=== PATIENT | male | born 1940 | race Two or more races ===

== ENCOUNTER 2016-08-29 08:58 | Inpatient (IN) | payer MEDICAID ==
[2016-08-29] MEDS: NS 0.9% 1000 ML* 2,000 ML IV ONE ×2 (09:34→11:01)
[2016-08-29 09:37] LABS: Hematocrit 43 % (42-52); Hemoglobin 14.7 g/dl (14.0-18.0); Mean Corpuscular HGB Conc 34 g/dl (31-36); Mean Corpuscular Hemoglobin 33 pg (27-31); Mean Corpuscular Volume 95 fL (80-94); Mean Platelet Volume 8 um3 (7.4-10.4); Red Cell Distribution Width 13 % (10.5-15); White Blood Count 10.1 10^3/ul (3.5-10.8)
[2016-08-29 09:38] LABS: Comments Flag Yes
[2016-08-29 09:39] LABS: Add Diff/Slide Review? Slide Review Added
[2016-08-29 09:49] LABS: Albumin 2.9 g/dL (3.2-5.2); BUN/Creatinine Ratio 27.3 (8-20); C Reactive Protein 105.72 mg/L (< 5.00); Calcium 8.7 mg/dL (8.6-10.3); EGFR African American 126.3 (>60); EGFR Non-African American 98.2 (>60); Globulin 3.7 g/dL (2-4); Magnesium 2.2 mg/dL (1.9-2.7); Potassium 4.2 mmol/L (3.5-5.0); Total Protein 6.6 g/dL (6.4-8.9)
--- NOTE | 2016-08-29 09:49 | RAD ---
INDICATION: Unresponsive. Fever. COMPARISON: Chest x-ray April 25, 2016 TECHNIQUE: An AP portable view obtained at 0935 hours is submitted. FINDINGS: Bones/Soft Tissues: There are no acute bony findings. Cardiomediastinal: The cardiomediastinal silhouette is normal. Lungs: There are no infiltrates. Pleura: There are no pleural effusions. Other: None IMPRESSION: NO ACTIVE DISEASE.
[2016-08-29 09:51] LABS: Troponin I 0.01 ng/mL (<0.04)
[2016-08-29 10:14] LABS: TSH (Thyroid Stimulating Horm) 11.17 mcIU/mL (0.34-5.60)
[2016-08-29 10:32] LABS: Urine Bilirubin Negative (Negative); Urine Glucose Negative (Negative); Urine Nitrite Negative (Negative)
[2016-08-29] MEDS ORDERED: Acetaminophen SUPP* 650 MG SUPP PR PRN (12:26)
[2016-08-29] MEDS ORDERED: PROCHLORPERAZINE INJ 5 MG/ML 2 ML VIAL IV PRN (12:28)
[2016-08-29] MEDS ORDERED: Divalproex Sprinkle CAP* 125 MG PO SCH (13:00)
--- NOTE | 2016-08-29 13:51 | ED ---
Robert Garcia Billy, scribed for Hossein Lantigua MD on 08/29/16 at 1006 . HPI Febrile Illness - HPI Summary HPI Summary: Patient is a 75 year-old male coming to [facility] for evaluation of 5 days of fever (TMax 102F) that has been unimproved with Tylenol and amoxicillin. Patient has a history of severe dementia, and the history is obtained from his family through a diesel retrofit installer service. Family reports that the patient also has had decreased PO intake and urinary production, and has had dark, reddish urine. - History of Current Complaint Chief Complaint: EDFever Time Seen by Provider: 08/29/16 09:15 Hx Obtained From: Family/Hris Administrator, Spot Welder Line Hx From Patient Unobtainable Due To: Dementia Onset/Duration: Started Days Ago, Still Present Timing: Constant Temperature: 102 F Initial Severity: Moderate Current Severity: Moderate Aggravating Factors: Nothing Alleviating Factors: Nothing Associated Signs and Symptoms: Other: - decreased PO intake, dark urine - Additional Pertinent History Primary Care Physician: [id number] - Allergy/Home Medications Allergies/Adverse Reactions: Allergies Allergy/AdvReac Type Severity Reaction Status Date / Time No Known Allergies Allergy Verified 01/09/16 10:57 Home Medications: Home Medications Control Gel Formula Dressing [Duoderm Signal Dressing] 1 patch TOPICAL DAILY 09/11 [History Confirmed 08/29/16] Divalproex Sprinkle CAP* [Depakote Sprinkle CAP*] 125 mg PO QID 08/29/16 [ History Confirmed 08/29/16] Magnesium Hydroxide LIQ* [Milk of Magnesia LIQ*] 30 ml PO DAILY PRN 08/29/16 [ History Confirmed 08/29/16] PMH/Surg Hx/FS Hx/Imm Hx Respiratory History: Reports: Hx Pneumonia - History of aspiration pneumonia Denies: Other Respiratory Problems/Disorders History: Reports: Hx Benign Prostatic Hyperplasia, Other Problems/ Disorders - prostatitis or enlarged prostate Sensory History: Reports: Hx Cataracts, Hx Contacts or Glasses Opthamlomology History: Reports: Hx Cataracts, Hx Contacts or Glasses Neurological History: Reports: Hx Dementia, Hx Seizures Psychiatric History: Denies: Hx Anxiety - Surgical History Hx Anesthesia Reactions: No Infectious Disease History: No Infectious Disease History: Denies: Traveled Outside the [place] in Last 30 Days - Family History Family History: No family history of malignant hyperthermia or anesthesia reaction. - Social History Alcohol Use: None Hx Substance Use: No Substance Use Type: Reports: None Hx Tobacco Use: No Smoking Status (MU): Never Smoked Tobacco Review of Systems Positive: Fever Positive: Other - decreased PO Positive: see HPI All Other Systems Reviewed And Are Negative: Yes Physical Exam Triage Information Reviewed: Yes Vital Signs On Initial Exam: Initial Vitals Temp Pulse Resp BP Pulse Ox 99.4 F 87 15 109/71 95 08/29/16 09:30 08/29/16 09:30 08/29/16 09:30 08/29/16 09:30 08/29/16 09:30 Vital Signs Reviewed: Yes Completion Of Physical Exam Limited Due To: Dementia Appearance: Positive: No Pain Distress Skin: Positive: Warm, Skin Color Reflects Adequate Perfusion, Dry Head/Face: Positive: Normal Head/Face Inspection Eyes: Positive: EOMI, TIESHA ENT: Positive: Normal ENT inspection Neck: Positive: Supple, Nontender Respiratory/Lung Sounds: Positive: Clear to Auscultation, Breath Sounds Present Cardiovascular: Positive: RRR Abdomen Description: Positive: Nontender, Soft Musculoskeletal: Negative: Edema Left, Edema Right Neurological: Positive: Other - Patient is non-verbal at baseline. Psychiatric: Positive: Other - Unable to assess, patient is nonverbal at baseline. Diagnostics - Vital Signs Vital Signs Temp Pulse Resp BP Pulse Ox 08/29/16 09:30 99.4 F 87 15 109/71 95 - Laboratory Lab Results: Lab Results 08/29/16 08/29/16 08/29/16 Range/Units 09:20 09:20 09:20 WBC 10.1 (3.5-10.8) 10^3/ul RBC 4.50 (4.0-5.4) 10^6/ul Hgb 14.7 (14.0-18.0) g/dl Hct 43 (42-52) % MCV 95 H (80-94) fL MCH 33 H (27-31) pg MCHC 34 (31-36) g/dl RDW 13 (10.5-15) % Plt Count 168 (150-450) 10^3/ul MPV 8 (7.4-10.4) um3 Neut % (Auto) 67.6 (38-83) % Lymph % (Auto) 15.9 L (25-47) % [place] % (Auto) 15.8 H (1-9) % Eos % (Auto) 0.2 (0-6) % Baso % (Auto) 0.5 (0-2) % Absolute Neuts (auto) 6.8 (1.5-7.7) 10^3/ul Absolute Lymphs (auto) 1.6 (1.0-4.8) 10^3/ul Absolute Monos (auto) 1.6 H (0-0.8) 10^3/ul Absolute Eos (auto) 0 (0-0.6) 10^3/ul Absolute Basos (auto) 0.1 (0-0.2) 10^3/ul Absolute Nucleated RBC 0 10^3/ul Nucleated RBC % 0 INR (Anticoag Therapy) 0.96 (0.89-1.11) APTT 32.1 (26.0-36.3) seconds Sodium (133-145) mmol/L Potassium (3.5-5.0) mmol/L Chloride (101-111) mmol/L Carbon Dioxide (22-32) mmol/L Anion Gap (2-11) mmol/L BUN (6-24) mg/dL Creatinine (0.67-1.17) mg/dL Est GFR ( Amer) (>60) Est GFR (Non-Af Amer) (>60) BUN/Creatinine Ratio (8-20) Glucose (70-100) mg/dL Lactic Acid (0.5-2.0) mmol/L Calcium (8.6-10.3) mg/dL Magnesium (1.9-2.7) mg/dL Total Bilirubin (0.2-1.0) mg/dL AST (13-39) U/L ALT (7-52) U/L Alkaline Phosphatase (34-104) U/L Total Creatine Kinase (10-223) U/L CK-MB (CK-2) (0.6-6.3) ng/mL Troponin I (<0.04) ng/mL C-Reactive Protein (< 5.00) mg/L B-Natriuretic Peptide 43 ( - 100) pg/mL Total Protein (6.4-8.9) g/dL Albumin (3.2-5.2) g/dL Globulin (2-4) g/dL Albumin/Globulin Ratio (1-3) Lipase (11.0-82.0) U/L TSH 08/29/16 08/29/16 Range/Units 09:20 09:20 WBC (3.5-10.8) 10^3/ul RBC (4.0-5.4) 10^6/ul Hgb (14.0-18.0) g/dl Hct (42-52) % MCV (80-94) fL MCH (27-31) pg MCHC (31-36) g/dl RDW (10.5-15) % Plt Count (150-450) 10^3/ul MPV (7.4-10.4) um3 Neut % (Auto) (38-83) % Lymph % (Auto) (25-47) % [place] % (Auto) (1-9) % Eos % (Auto) (0-6) % Baso % (Auto) (0-2) % Absolute Neuts (auto) (1.5-7.7) 10^3/ul Absolute Lymphs (auto) (1.0-4.8) 10^3/ul Absolute Monos (auto) (0-0.8) 10^3/ul Absolute Eos (auto) (0-0.6) 10^3/ul Absolute Basos (auto) (0-0.2) 10^3/ul Absolute Nucleated RBC 10^3/ul Nucleated RBC % INR (Anticoag Therapy) (0.89-1.11) APTT (26.0-36.3) seconds Sodium 130 L (133-145) mmol/L Potassium 4.2 (3.5-5.0) mmol/L Chloride 99 L (101-111) mmol/L Carbon Dioxide 22 (22-32) mmol/L Anion Gap 9 (2-11) mmol/L BUN 21 (6-24) mg/dL Creatinine 0.77 (0.67-1.17) mg/dL Est GFR ( Amer) 126.3 (>60) Est GFR (Non-Af Amer) 98.2 (>60) BUN/Creatinine Ratio 27.3 H (8-20) Glucose 160 H (70-100) mg/dL Lactic Acid 2.8 H* (0.5-2.0) mmol/L Calcium 8.7 (8.6-10.3) mg/dL Magnesium 2.2 (1.9-2.7) mg/dL Total Bilirubin 1.00 (0.2-1.0) mg/dL AST 26 (13-39) U/L ALT 13 (7-52) U/L Alkaline Phosphatase 49 (34-104) U/L Total Creatine Kinase 579 H (10-223) U/L CK-MB (CK-2) 3.6 (0.6-6.3) ng/mL Troponin I 0.01 (<0.04) ng/mL C-Reactive Protein 105.72 H (< 5.00) mg/L B-Natriuretic Peptide ( - 100) pg/mL Total Protein 6.6 (6.4-8.9) g/dL Albumin 2.9 L (3.2-5.2) g/dL Globulin 3.7 (2-4) g/dL Albumin/Globulin Ratio 0.8 L (1-3) Lipase 15 (11.0-82.0) U/L TSH Pending Result Diagrams: 08/29/16 09:20 08/29/16 09:20 Lab Statement: Any lab studies that have been ordered have been reviewed, and results considered in the medical decision making process. Course/Dx - Course Course Of Treatment: NO CRITICAL CARE TIME Assessment/Plan: ADMIT HOSPITALIST STABLE - Diagnoses Provider Diagnoses: Febrile illness, Weakness - Provider Notifications Discussed Care Of Patient With: Dr. Cote (hospitalist) @ 1058: accepts admission. Discharge - Discharge Plan Condition: Stable Disposition: ADMITTED TO [facility] documentation as recorded by the Robert dubose Billy accurately reflects the service I personally performed and the decisions made by me, Hossein Lantigua MD.
[2016-08-29] MEDS: NS 0.9% 1000 ML* 1,000 ML IV SCH ×2 (14:10→19:33)
[2016-08-29] MEDS: Clindamycin 600 MG IVPREMIX(* 600 MG/50 ML SDV IV SCH ×2 (14:10→20:06)
[2016-08-29] MEDS: Pantoprazole IV* 40 MG IV SCH (14:17)
[2016-08-29] MEDS: Heparin VIAL(*) 5000 UNITS/ML VIAL (FIVE THOUSAND) SUBCUT SCH ×2 (14:17→21:42)
[2016-08-29] MEDS: Valproic Acid IV(*) 100 MG/ML 5 ML VIAL (500 MG) IVPB SCH ×2 (15:44→15:45)
[2016-08-29] MEDS: NS 0.9% IVPB SCH ×3 (15:45→21:42)
[2016-08-29] MEDS: VALPROIC ACID IVPB SCH ×3 (15:45→21:42)
[2016-08-29] MEDS ORDERED: NS 0.9% 500 ML BAG* 500 ML IV ONE (18:19)
--- NOTE | 2016-08-29 20:41 | HP ---
Amended report to correct past surgical history. HISTORY AND PHYSICAL: DATE OF ADMISSION: 08/29/16 TIME OF EVALUATION: Noon. PRIMARY CARE PROVIDER: Dr. Angelica Barr. CHIEF COMPLAINT: "He has a fever." HISTORY OF PRESENT ILLNESS: The patient is accompanied by his and friend that only speak Czech. They refused to use the blue tool procurement coordinator phone and preferred to use her own tool procurement coordinator on her cell phone. Please note that information is limited due to that. Mr. Aparicio is a 75-year-old male with a past medical history of advanced Alzheimer 's dementia, seizure disorder, BPH, history of GI bleeding, cholelithiasis, multiple admissions for aspiration pneumonia, who was brought in by his family due to fever for 5 days. The patient was admitted to [facility] from 04/25/16 to 04/27/16. At that time, the impression was that the patient has had an episode of seizure and this was followed by possible aspiration and fever. He was treated with Augmentin at that time. He was seen by Palliative Care at that time (Dr. Bailee Edwards) and she felt that he would qualify for hospice services on the basis of his profound dementia and recurrent aspiration, but the family was not interested at that time. On that occasion, his MOLST form was confirmed and the patient was do not resuscitate. It is a bit difficult to get the timing from his , but it appears he may have had one episode of choking while drinking water. Over the last 5 days, he started to have a fever up to 102 at home and she gave him amoxicillin. She states that he has not seen a physician and this amoxicillin is something that she brought from [place]. He continued to have fever, was more lethargic, and he was not drinking or eating, and for that reason, they decided to bring him to the emergency room today. As far as she can tell me, he was not complaining of pain. PAST MEDICAL HISTORY: 1. Advanced Alzheimer's dementia. 2. Seizure disorder. 3. BPH. 4. History of GI bleed. 5. History of cholelithiasis. MEDICATION LIST: 1. Depakote Sprinkle 125 mg p.o. four times a day. 2. Doxazosin 2 mg p.o. at bedtime. 3. Milk of magnesia 30 mL p.o. daily as needed for constipation. 4. Omeprazole 20 mg p.o. daily. ALLERGIES: No known drug allergies. FAMILY HISTORY: Unable to obtain from the patient. SOCIAL HISTORY: As per records, there is no report of alcohol, tobacco, or drug use. He lives at home with his and daughter who provide much of his care. Surrogate decision maker is his son, Yi Aparicio, phone number is . REVIEW OF SYSTEMS: I am unable to obtain from the patient. PHYSICAL EXAMINATION GENERAL: The patient is an elderly male, lying in the ER stretcher, in no acute distress. VITAL SIGNS: Temperature 99.4, heart rate is 85, respiratory rate is 17, oxygen saturation is 97% on room air, blood pressure is 130/76. HEENT: Pupils are equal. Dry mucous membranes. CHEST: Breath sounds present bilaterally, coarse but no added sounds. CVS: Normal S1 and S2. Regular rate and rhythm. ABDOMEN: Soft, nontender, and nondistended. Bowel sounds are present. EXTREMITIES: No edema. NEURO: He is alert, but nonverbal at this time. He does not follow commands. He does withdraw all 4 extremities from pain. DIAGNOSTIC STUDIES/LAB DATA: The patient had a CBC that showed a WBC of 10.1, hemoglobin of 14.7, hematocrit of 43, MCV of 95, MCH of 33, platelets of 168 with 67% neutrophils. INR is 0.96. Chemistries showed sodium of 130, potassium of 4.2, chloride of 99, bicarb of 22, BUN of 21, creatinine of 0.7, glucose of 160, lactic acid of 2.8. LFTs are normal. CPK is 579. CRP is 105. TSH is 11.17. Urinalysis was negative. Rapid influenza A and B were negative. Chest x-ray showed no active disease. ASSESSMENT AND PLAN: Mr. Aparicio is a 75-year-old male with past medical history of advanced Alzheimer's dementia, seizure disorder, benign prostatic hyperplasia , gastrointestinal bleed, cholelithiasis, recurrent episodes of aspiration pneumonia, who presented to the emergency room with fever and failure to thrive. 1. Fever/failure to thrive. I suspect that the patient probably has another episode of aspiration pneumonia. Chest x-ray showed no infiltrate for now, but the patient is dehydrated, so I believe something may blossom with IV hydration. Urinalysis and influenza tests are negative at this time and the describes one episode of choking with liquids. He will be admitted as observation to the medical floor and he will be started on clindamycin. Cultures are already sent in the emergency room. 2. Dehydration. The patient will receive IV fluids. 3. Possible dysphagia/recurrent aspiration. I am going to keep the patient n.p.o. except medications for now and I am going to request Speech Therapy evaluation. 4. Advanced dementia. I believe the patient qualifies for hospice and I am going to request another Palliative Care consultation to discuss this possibility with his family. 5. DVT prophylaxis. The patient has a score of 3 on the DVT Prophylaxis Risk Assessment guide and he will be started on subcutaneous heparin. 6. Code status. According to his MOLST form filled on his last admission, he is a do not resuscitate. According to the 's wishes, I called his son to confirm those directives, but the son did not sweet pickled fruit maker the phone, so I left a message and I am awaiting his call back. This MOLST form should be valid for at least 24 hours until we can get in touch with his healthcare proxy. TIME SPENT: Approximately 55 minutes was spent with the family interview, the patient's physical examination, medical records review to complete the admission , more than half of this time was spent [id number] with the patient in coordination of care. CC: Dr. Angelica Barr* [id number]/CPS #: [id number] NICK
[2016-08-29] MEDS ORDERED: Doxazosin TAB* 2 MG PO SCH (21:00)
[2016-08-30] MEDS: Clindamycin 600 MG IVPREMIX(* 600 MG/50 ML SDV IV SCH ×4 (01:00→18:23)
[2016-08-30 05:59] LABS: Comments Flag Yes; Hematocrit 44 % (42-52); Hemoglobin 14.1 g/dl (14.0-18.0); Mean Corpuscular HGB Conc 32 g/dl (31-36); Mean Corpuscular Hemoglobin 32 pg (27-31); Mean Corpuscular Volume 100 fL (80-94); Mean Platelet Volume 9 um3 (7.4-10.4); Red Blood Count 4.39 10^6/ul (4.0-5.4); Red Cell Distribution Width 14 % (10.5-15); White Blood Count 7.3 10^3/ul (3.5-10.8)
[2016-08-30 06:00] LABS: Add Diff/Slide Review? Slide Review Added
[2016-08-30] MEDS: Heparin VIAL(*) 5000 UNITS/ML VIAL (FIVE THOUSAND) SUBCUT SCH ×3 (06:05→22:06)
[2016-08-30] MEDS: NS 0.9% 1000 ML* 1,000 ML IV SCH ×2 (06:05→17:26)
[2016-08-30 06:21] LABS: BUN/Creatinine Ratio 27.4 (8-20); Calcium 8.2 mg/dL (8.6-10.3); EGFR African American 162.2 (>60); EGFR Non-African American 126.1 (>60)
[2016-08-30 06:47] LABS: Free T4 0.97 ng/dL (0.61-1.12)
[2016-08-30 07:02] LABS: Total T3 1.24 ng/mL (0.87-1.78)
[2016-08-30] MEDS: Pantoprazole IV* 40 MG IV SCH (09:57)
[2016-08-30] MEDS: NS 0.9% IVPB SCH ×4 (09:57→22:06)
[2016-08-30] MEDS: VALPROIC ACID IVPB SCH ×4 (09:57→22:06)
--- NOTE | 2016-08-30 14:40 | PN ---
Subjective Date of Service: 08/30/16 Interval History: HOSPITALIST PROGRESS NOTE Patient seen and examined at bedside. Non-verbal. Family member at bedside offers no complaints, but did not want to use blue phone. Family History: Unchanged from Admission Social History: Unchanged from Admission Past Medical History: Unchanged from Admission Objective Active Medications: Acetaminophen (Tylenol Supp*) 650 mg ND Q4H PRN PRN Reason: Pain/fever Heparin Sodium (Porcine) (Heparin Vial(*)) 5,000 units SUBCUT Q8HR [facility] Last Admin: 08/30/16 14:27 Dose: 5,000 units Sodium Chloride (Ns 0.9% 1000 Ml*) 1,000 mls @ 100 mls/hr IV PER RATE [facility] Last Admin: 08/30/16 06:05 Dose: 100 mls/hr Clindamycin HCl/Dextrose (Cleocin 600 Mg Ivpremix(*) Sdv) 600 mg in 50 mls @ 100 mls/hr IV Q6H [facility] Last Admin: 08/30/16 12:39 Dose: 100 mls/hr Valproic Acid 125 mg/ Sodium (Chloride) 51.25 mls @ 102.5 mls/hr IVPB QID [facility] Last Admin: 08/30/16 14:26 Dose: 102.5 mls/hr Pantoprazole Sodium (Protonix Iv*) 40 mg IV DAILY [facility] Last Admin: 08/30/16 09:57 Dose: 40 mg Prochlorperazine Edisylate (Compazine Inj*) 5 mg IV Q6H PRN PRN Reason: NAUSEA/VOMITING Selected Entries 08/30/16 07:21 Temperature 98.2 F Pulse Rate 74 Respiratory 16 Rate Blood Pressure 142/79 (mmHg) O2 Sat by Pulse 100 Oximetry Oxygen Devices in Use Now: Nasal Cannula Appearance: Elderly male lying in bed in NAD. Eyes: No Scleral Icterus Ears/Nose/Mouth/Throat: Mucous Membranes Moist Neck: Trachea Midline Respiratory: Symmetrical Chest Expansion and Respiratory Effort, Clear to Auscultation Cardiovascular: RRR - Normal S1 and S2 Abdominal: NL Sounds; No Tenderness; No Distention Extremities: No Edema Neurological: - - Lethargic, did not open eyes, doesn't follow commands Lines/Tubes/Other Access: Clean, Dry and Intact Peripheral IV Result Diagrams: 08/30/16 05:26 08/30/16 05:26 Assess/Plan/Problems-Billing Assessment: Mr. Aparicio is a 75yo M with advanced dementia, seizure disorder, BPH, who presented to ED with fever and poor oral intake, found to have another episode of aspiration pneumonia. - Patient Problems (1) Aspiration pneumonia Comment: - Suspect his fever and failure to thrive are associated with another episode of aspiration pneumonia. - Continue Clindamycin. (2) Dehydration Comment: - Continue IVF. (3) Dysphagia Comment: - Seen by Speech pathology - recommended pureed diet with nectar thick liquids (by spoon). (4) Dementia Comment: - Continue supportive care. - Palliative care consult requested. (5) DVT prophylaxis Comment: - SQ heparin. (6) DNR (do not resuscitate) Status and Disposition: Inpatient.
--- NOTE | 2016-08-30 20:48 | CONS ---
PALLIATIVE CARE CONSULTATION: DATE OF CONSULT: 08/30/16 PRIMARY CARE PHYSICIAN: Angelica Barr MD. REQUESTING PHYSICIAN FOR CONSULTATION: Aneta Pascal MD. REASON FOR CONSULT: Evaluation for hospice. HOSPITAL COURSE: This is a 75-year-old male with a past medical history of advanced Alzheimer's dementia with a history of recurrent aspiration pneumonia and seizure disorder who presented to the emergency room on the with a fever. The patient himself has advanced dementia. He is nonverbal and unable to follow commands. His and several family members are only able to speak Mandarin. The son, Yi Aparicio, is able to translate and is the primary proxy. The patient was admitted to the hospitalist service for presumed fever, failure to thrive, and possibly aspiration pneumonia and was started on IV fluids and antibiotics. There was discussion about his deterioration and getting palliative care involved. Palliative care evaluated the patient back in March 2016 and at that time he was eligible for hospice and the family declined, but son feels now that they feel that he and his mother will be ready for him to enroll in hospice. He has remained nonverbal. He does not have any meaningful interaction. He keeps his eyes closed for the majority of the day. For the past week, he has been unable to get into the wheelchair. The family members are the primary caregivers and care for him at home, but they stated things are getting harder and harder for him as he is beginning to deteriorate. The son Yi thinks that the will be agreeable to hospice and we discussed managing his symptoms at home and keeping at home as comfortable as possible would be the goal. He did pass a swallow evaluation here for nectar thickened pureed diet, but the staff is reluctant to feed him due to his decreased level of alertness as he does keep his eyes closed. The family is more comfortable with feeding him. They state that he will eventually open his eyes as he begins to be fed, which I discussed as another reason to keep him home as I know him they are more comfortable with feeding him and his behavior, and the son is agreeable to this. Unable to obtain review of systems due to the patient's advanced dementia. PAST MEDICAL HISTORY: 1. Advanced Alzheimer's dementia. 2. History of recurrent aspiration pneumonia. 3. Seizure disorder. 4. History of BPH. 5. History of GI bleed. 6. History of cholelithiasis. 7. History of 5 admissions in 2016 secondary to aspiration pneumonia and GI bleed. INPATIENT MEDICATIONS: 1. Tylenol 650 mg every 4 hours as needed. 3. Clindamycin 600 mg every 6 hours. 4. Heparin 5000 units subcu q.8 hours. 5. IV fluids 100 cc an hour. 6. Pantoprazole 40 mg IV daily. 7. Prochlorperazine 5 mg IV q.6 hours as needed. 8. Valproic acid 125 mg 4 times a day. ALLERGIES: No known drug allergies. FAMILY HISTORY: Unable to obtain. SOCIAL HISTORY: As mentioned, the patient lives at home. He is being cared for by his , daughter, and son. As mentioned, he is nonverbal, nonambulatory, completely dependent on his ADLs. His son, Yi Aparicio, is the primary healthcare proxy, his phone number is [phone]. MOLST form currently is a DNR and DNI. No feeding tube, determined antibiotics and to sent to the hospital if necessary. REVIEW OF SYSTEMS: Unable to obtain. PHYSICAL EXAM: Vitals: Temp 98.2, pulse rate 74, respiratory rate 16, oxygen saturation 100% on 2 L, blood pressure 142/79. General: No acute distress. Resting comfortably with his eyes closed. Unable to awake the patient with tactile or verbal stimuli. HEENT: Neck supple. No lymphadenopathy. Pupils are pinpoint, difficult to open them. The patient is resisting my opening his eyes. Oropharynx: Mucous membranes moist. Head: Normocephalic. Cardiac: Soft systolic murmur heard. Regular rate and rhythm. Respiratory: Diminished breath sounds. No wheezing, rhonchi, or rales. Abdomen: Soft, nontender, nondistended. Extremities: No clubbing, cyanosis, or edema. +1 DPs. Neurologic: The patient is nonverbal, unable to follow any commands. Did not witness any spontaneous movement. DIAGNOSTIC STUDIES/LAB DATA: White count 7.3, hemoglobin 14.1, hematocrit 44, platelets 105. Sodium 133, potassium 4, chloride 106, bicarb 20, BUN 17, creatinine 0.62. Albumin is 2.9. Chest x-ray showed no active cardiopulmonary disease. ASSESSMENT AND PLAN: This is a 75-year-old male with a past medical history of advanced Alzheimer's dementia and recurrent aspiration pneumonia, who presented to the emergency room on the with a fever, potentially with aspiration pneumonia/pneumonitis. I spoke with the son at length and he admits that his clinical status has continued to decline. He is becoming more weak, unable to sit in a wheelchair for very long. He and his family were not ready for hospice back in March when palliative care was consulted at this time. At this time, he is much more accepting of hospice with the additional resources and keeping him comfortable at home and we discussed to not return to the hospital unless pain or severe symptoms could not be otherwise controlled and he is agreeable to this. Recommendation is to go home with hospice tomorrow and to enroll with hospice as well. I modified the MOLST form to include the DNR/ DNI comfort measures. No feeding tube and do not sent to the hospital, determine use of antibiotics and the son is going to sign this when he comes into the hospital. He is going to talk to his mother to make sure that she is agreeable to these recommendations. If she is not, he will contact the hospital and notify us, but he feels that she will be agreeable to the recommendations. Thank you for this consultation, I will follow along with you. TIME SPENT: Greater than 90 minutes was spent during this consultation, more than half the time was spent in direct patient contact. CC: Angelica Barr MD* [id number]/[facility] #: [id number] NICK
[2016-08-31] MEDS: Clindamycin 600 MG IVPREMIX(* 600 MG/50 ML SDV IV SCH ×2 (01:01→06:03)
[2016-08-31] MEDS: NS 0.9% 1000 ML* 1,000 ML IV SCH (05:31)
[2016-08-31] MEDS: Heparin VIAL(*) 5000 UNITS/ML VIAL (FIVE THOUSAND) SUBCUT SCH ×3 (06:03→22:41)
[2016-08-31 06:42] LABS: BUN/Creatinine Ratio 17.9 (8-20); Calcium 7.9 mg/dL (8.6-10.3); EGFR African American 148.3 (>60); EGFR Non-African American 115.3 (>60); Potassium 3.9 mmol/L (3.5-5.0)
[2016-08-31 07:15] LABS: Hematocrit 36 % (42-52); Hemoglobin 12.2 g/dl (14.0-18.0); Mean Corpuscular HGB Conc 34 g/dl (31-36); Mean Corpuscular Hemoglobin 33 pg (27-31); Mean Corpuscular Volume 96 fL (80-94); Mean Platelet Volume 7 um3 (7.4-10.4); Red Blood Count 3.75 10^6/ul (4.0-5.4); Red Cell Distribution Width 13 % (10.5-15); White Blood Count 9.4 10^3/ul (3.5-10.8)
[2016-08-31 07:21] LABS: Add Diff/Slide Review? Slide Review Added; Comments Flag Yes
[2016-08-31] MEDS: Pantoprazole IV* 40 MG IV SCH (08:34)
[2016-08-31] MEDS: Divalproex Sprinkle CAP* 125 MG PO SCH ×5 (08:39→21:16)
--- NOTE | 2016-08-31 12:14 | PN ---
Subjective Date of Service: 08/31/16 Interval History: HOSPITALIST PROGRESS NOTE Patient seen and examined at bedside. Non-verbal. As per RN, patient had better PO intake with family last night. Family History: Unchanged from Admission Social History: Unchanged from Admission Past Medical History: Unchanged from Admission Objective Active Medications: Acetaminophen (Tylenol Supp*) 650 mg TX Q4H PRN PRN Reason: Pain/fever Last Admin: 08/30/16 22:06 Dose: 650 mg Clindamycin HCl (Cleocin Cap*) 300 mg PO Q6HR EMRE Divalproex Sodium (Depakote Sprinkle Cap*) 125 mg PO QID [facility] Last Admin: 08/31/16 08:39 Dose: 125 mg Doxazosin Mesylate (Cardura Tab*) 2 mg PO BEDTIME [facility] Heparin Sodium (Porcine) (Heparin Vial(*)) 5,000 units SUBCUT Q8HR [facility] Last Admin: 08/31/16 06:03 Dose: 5,000 units Pantoprazole Sodium (Protonix Iv*) 40 mg IV DAILY [facility] Last Admin: 08/31/16 08:34 Dose: 40 mg Prochlorperazine Edisylate (Compazine Inj*) 5 mg IV Q6H PRN PRN Reason: NAUSEA/VOMITING Vital Signs 08/30/16 08/30/16 08/31/16 22:06 23:41 04:16 Temperature 99.9 F 99.1 F 98.5 F Pulse Rate 75 66 Respiratory 16 17 Rate Blood Pressure 142/74 123/61 (mmHg) O2 Sat by Pulse 99 99 Oximetry 08/31/16 08/31/16 07:13 08:00 Temperature 98.0 F Pulse Rate 69 Respiratory 16 Rate Blood Pressure 140/76 (mmHg) O2 Sat by Pulse 100 Oximetry Oxygen Devices in Use Now: Nasal Cannula Appearance: Elderly male lying in bed in NAD. Eyes: No Scleral Icterus Ears/Nose/Mouth/Throat: Mucous Membranes Moist Neck: Trachea Midline Respiratory: Symmetrical Chest Expansion and Respiratory Effort, Clear to Auscultation Cardiovascular: RRR - Normal S1 and S2 Abdominal: NL Sounds; No Tenderness; No Distention Extremities: No Edema Neurological: - - Eyes closed, squeezes family member hand, but does not follow commands. Lines/Tubes/Other Access: Clean, Dry and Intact Peripheral IV Nutrition: Taking PO's Result Diagrams: 08/31/16 07:00 04/06/17 05:38 Assess/Plan/Problems-Billing Assessment: Mr. Aparicio is a 75yo M with advanced dementia, seizure disorder, BPH, who presented to ED with fever and poor oral intake, found to have another episode of aspiration pneumonia. - Patient Problems (1) Aspiration pneumonia Comment: - Suspect his fever and failure to thrive are associated with another episode of aspiration pneumonia. - Will change Clindamycin to PO and see if he can tolerate it. (2) Dehydration Comment: - Resolved. - D/c IVF and encourage PO fluid intake. (3) Dysphagia Comment: - Seen by Speech pathology - recommended pureed diet with nectar thick liquids (by spoon). (4) Dementia Comment: - Continue supportive care. - Palliative care consult appreciated. (5) Seizure disorder Comment: - Change IV Depakote back to PO and monitor. (6) Subclinical hypothyroidism Comment: - TSH has been elevated, but Free T4 and T3 are normal. (7) End of life care Comment: - Lengthy conversation with patient's son at bedside. He is accepting the idea to discharge home with Hospice, but struggling with what to do if his father has another episode of pneumonia. - Plan at this time is to see if he can tolerate PO meds, plan for discharge home with Hospice tomorrow and son will further discuss with family what to do in case patient comes down with another infection. (8) DVT prophylaxis Comment: - SQ heparin. (9) DNR (do not resuscitate) Status and Disposition: Inpatient.
[2016-08-31] MEDS: Clindamycin CAP* 150 MG PO SCH ×3 (12:30→23:52)
[2016-08-31] MEDS ORDERED: Acetaminophen TAB* 325 MG PO PRN (12:32)
[2016-08-31] MEDS ORDERED: Doxazosin TAB* 2 MG PO SCH (21:00)
[2016-09-01] MEDS: Clindamycin CAP* 150 MG PO SCH (05:19)
[2016-09-01] MEDS: Heparin VIAL(*) 5000 UNITS/ML VIAL (FIVE THOUSAND) SUBCUT SCH (05:20)
[2016-09-01] MEDS ORDERED: Omeprazole CAP* 20 MG PO SCH (06:30)
[2016-09-01 07:34] VITALS: BP 132/74
[2016-09-01] MEDS: Divalproex Sprinkle CAP* 125 MG PO SCH (07:54)
--- NOTE | 2016-09-02 00:32 | DS ---
CC: Dr. Angelica Barr; Dr. Adri Rossi DISCHARGE SUMMARY: DATE OF ADMISSION: 08/29/16 DATE OF DISCHARGE: 09/01/16 DISCHARGE DIAGNOSES: 1. Aspiration pneumonia. 2. Dehydration. 3. Mild lactic acidosis. 4. Subclinical hypothyroidism. SECONDARY DIAGNOSES: 1. Advanced Alzheimer's dementia. 2. Seizure disorder. 3. Benign prostatic hypertrophy. 4. History of GI bleed. 5. History of cholelithiasis. MEDICATION LIST: 1. DuoDERM dressing topical daily. 2. Depakote Sprinkle 500 mg p.o. b.i.d. 3. Doxazosin 2 mg p.o. at bedtime. 4. Milk of magnesia 30 mL p.o. daily as needed for constipation. 5. Omeprazole 20 mg p.o. daily. 6. New medication: Clindamycin 300 mg p.o. q.6 hours for 7 more days. HOSPITAL COURSE: Mr. Aparicio is a 75-year-old male with a past medical history as stated above who pre sented to the emergency room on 08/29/16 brought in by his family because he was having a fever and poor oral intake. For more details about his presentation, I refer you to his history and physical. The patient was admitted under the impression of fever, failure to thrive and this was felt to be se condary to another episode of aspiration pneumonia. As the patient has had multiple episode of aspiration pneumonia and has advanced dementia and now e palliative care consultation was requested and the patient was seen by Dr. Rossi. She talked to h is son at length (I had long conservation with the son as well) and he admitted that the patient's c linical condition continues to decline. He is becoming more weak and unable to sit in a wheelchair for very longtime and the son and the family were not ready for hospice back in March, but they a re interested at this time. I had multiple long conversations with the patient's son and although he is interested in hospice at this time, he is struggling to what he will do in the near future when the patient has another epis ode of decline. He was advised that signing off from his hospice and returning to the hospital is a n option and he is allowed to change his mind at anytime. The patient was seen in consultation by Speech Pathology who recommended a pureed diet with nectar t hick liquids and although the patient had a good intake with his family, but not so much with hospit al aids. For the last 24 hours, he was transitioned to oral medications and he was able to tolerate it well. The patient is medically stable to be discharged home with hospice today, but he will remain at a hi gh risk for readmission especially because he will develop another episode of aspiration pneumonia, the question is only when this is going to happen. PHYSICAL EXAMINATION: Vital Signs: Temperature 97.3, heart rate is 70, respiratory rate 16. Oxyge n saturation is 100% on room air. Blood pressure is 142/74. General: The patient is an elderly mal e, lying in bed in no acute distress. CVS: Normal S1 and S2. Regular rate and rhythm. Chest: Floridalma ath sounds bilaterally coarse, but no added sounds. Abdomen: Soft. Bowel sounds present. Neuro: Eyes are opened and he has been spoon fed by a family member, but he does not interact in the any o ther ways. DIET: Regular diet. Pureed texture. Brethren thick liquids. ACTIVITY: As tolerated. DISPOSITION: To home with hospice. STATUS IN THE HOSPITAL: Inpatient. Please keep in mind this is a summarized version of this patient 's hospital stay. If you need more information, please feel free to call me at [phone] or [facility] e obtain the full medical records. TIME SPENT: Approximately 45 minutes were spent to complete this discharge. [id number]/[facility] #: [id number]
== END 2016-09-01 11:35 | disposition hospice, home (50) | DRG 137 ==
LOC: ED 08:58 → MED 11:02 → OBSVTOIN 08-30 07:21
PROVIDERS: ADMIT Internal Medicine; ATTEND Internal Medicine
DX: J69.0 Pneumonitis due to inhalation of food and vomit (principal); E87.2 Acidosis; E86.0 Dehydration; G30.8 Other Alzheimer's disease; F02.80 Dementia in other diseases classified elsewhere, unspecified severity, without behavioral disturbance, psychotic disturbance, mood disturbance, and anxiety; E02 Subclinical iodine-deficiency hypothyroidism; G40.909 Epilepsy, unspecified, not intractable, without status epilepticus; N40.0 Benign prostatic hyperplasia without lower urinary tract symptoms; R13.10 Dysphagia, unspecified; Z66 Do not resuscitate; Z79.899 Other long term (current) drug therapy
CPT/HCPCS: 36415; 71010; 80048; 80053; 81003; 82550; 82553; 83605; 83690; 83735; 83880; 84439; 84443; 84479; 84484; 85025; 85610; 85730; 86140; 87040; 87077; 87150; 87205; 87502; A9270-GY; J1644

== ENCOUNTER 2016-09-07 08:33 | Inpatient (IN) | payer MEDICAID ==
[2016-09-07] MEDS ORDERED: NS 0.9% 1000 ML* 1,000 ML IV ONE ×2 (08:43→11:09)
[2016-09-07 09:31] LABS: Hematocrit 38 % (42-52); Hemoglobin 12.7 g/dl (14.0-18.0); Mean Corpuscular HGB Conc 34 g/dl (31-36); Mean Corpuscular Hemoglobin 32 pg (27-31); Mean Corpuscular Volume 96 fL (80-94); Mean Platelet Volume 7 um3 (7.4-10.4); Red Blood Count 3.93 10^6/ul (4.0-5.4); Red Cell Distribution Width 13 % (10.5-15); White Blood Count 9.9 10^3/ul (3.5-10.8)
[2016-09-07 09:49] LABS: ALT 9 U/L (7-52); AST 14 U/L (13-39); Albumin 2.6 g/dL (3.2-5.2); Alkaline Phosphatase 37 U/L (34-104); Anion Gap 6 mmol/L (2-11); BUN/Creatinine Ratio 15.2 (8-20); Blood Urea Nitrogen 10 mg/dL (6-24); CO2 Carbon Dioxide 26 mmol/L (22-32); Calcium 8.3 mg/dL (8.6-10.3); Chloride 102 mmol/L (101-111); Creatine Kinase 90 U/L (10-223); EGFR African American 150.9 (>60); EGFR Non-African American 117.3 (>60); Glucose 115 mg/dL (70-100); Magnesium 2.1 mg/dL (1.9-2.7); Potassium 3.7 mmol/L (3.5-5.0); Sodium 134 mmol/L (133-145); Total Protein 5.6 g/dL (6.4-8.9)
[2016-09-07 09:51] LABS: Acetaminophen < 15 mcg/mL; Alcohol < 10 mg/dL (<10); Salicylate < 2.50 mg/dL (<30)
--- NOTE | 2016-09-07 09:57 | RAD ---
HISTORY: Altered mental status COMPARISONS: April 25, 2016 TECHNIQUE: Multiple contiguous axial CT scans were obtained of the head without intravenous contrast. FINDINGS: HEMORRHAGE/INFARCT: There is no hemorrhage or acute infarct. MASSES/SHIFT: There is no mass or shift. EXTRA-AXIAL SPACES: There are no extra-axial fluid collections. SULCI AND VENTRICLES: There is diffuse and proportional enlargement of the sulci and ventricles. CEREBRUM: There is hypoattenuation of the periventricular and subcortical white matter. BRAINSTEM: There are no focal parenchymal abnormalities. CEREBELLUM: There are no focal parenchymal abnormalities. VESSELS: The vessels are grossly normal. PARANASAL SINUSES: The paranasal sinuses are clear. ORBITS: The orbits are unremarkable. BONES AND SOFT TISSUE: No bone or soft tissue abnormalities are noted. OTHER: None IMPRESSION: NO ACUTE INTRACRANIAL PATHOLOGY. DIFFUSE INVOLUTIONAL CHANGE WITH CHRONIC SMALL VESSEL ISCHEMIC CHANGES.
[2016-09-07 09:59] LABS: TSH (Thyroid Stimulating Horm) 10.73 mcIU/mL (0.34-5.60)
[2016-09-07] MEDS ORDERED: Ondansetron INJ* 2 MG/ML VIAL IV PRN (10:30)
[2016-09-07] MEDS ORDERED: Acetaminophen TAB* 325 MG PO PRN (10:30)
--- NOTE | 2016-09-07 10:41 | RAD ---
INDICATION: Altered mental status COMPARISON: August 29, 2016 TECHNIQUE: Seated AP and lateral views were obtained. The AP view was repeated for improved positioning FINDINGS: Bones/Soft Tissues: There are no acute bony findings. Cardiomediastinal: The cardiomediastinal silhouette is normal. Lungs: There are no infiltrates. Pleura: There are no pleural effusions. Other: None IMPRESSION: NO ACTIVE DISEASE.
[2016-09-07] MEDS: NS 0.9% 1000 ML* 1,000 ML IV SCH ×2 (13:36→16:45)
[2016-09-07] MEDS: Heparin VIAL(*) 5000 UNITS/ML VIAL (FIVE THOUSAND) SUBCUT SCH (15:27)
[2016-09-07] MEDS ORDERED: Magnesium Hydroxide LIQ* 30 ML UDC PO PRN (15:55)
[2016-09-07 16:25] LABS: Urine Bilirubin Negative (Negative); Urine Glucose Negative (Negative); Urine Nitrite Negative (Negative)
[2016-09-07] MEDS: cefTRIAXone VIAL(*) 1,000 MG in NS 0.9% 50 ML* 50 ML IVPB SCH (16:46)
[2016-09-07] MEDS: Azithromycin IV(*) 500 MG in NS 0.9% 250 ML* 250 ML IVPB SCH (17:13)
--- NOTE | 2016-09-07 18:19 | ED ---
Dmitriy Garcia Matthew, scribed for Kai Deleon MD on 09/07/16 at 0853 . Altered Mental Status - HPI Summary HPI Summary: A 75 y/o male presents to the ED with altered mental status. The patient is lethargic and unresponsive to questioning. He is a LEVEL 5 CAVEAT. The is present with the patient; however, she does not speak Bulgarian. Per EMS, she used a bulk intake worker mago on her phone and stated that he has not been eating or drinking since returning home from the hospital. He was recently seen at [facility] and Dx with pneumonia at that time. The following history was obtained through an interpreter and translator. Per the , the patient was seen on August 25 because he was having a fever of 102F. He was then seen on August 29 and admitted to [facility] for two and half days for a pneumonia. On September 01, he was sent home and continued to have a fever and doesn't want to drink any liquids. For the last few days, the patients temperature has been 99.2 in the morning and in the afternoon the temperature will go over a 100 degrees. - History Of Current Complaint Stated Complaint: dehydration Hx Obtained From: Patient Onset/Duration: Still Present Timing: Constant Severity Initially: Moderate Severity Currently: Moderate Character: Lethargy Aggravating Factor(s): Unknown Alleviating Factor(s): Unknown - Allergies/Home Medications Allergies/Adverse Reactions: Allergies Allergy/AdvReac Type Severity Reaction Status Date / Time No Known Allergies Allergy Verified 01/09/16 10:57 PMH/Surg Hx/FS Hx/Imm Hx Respiratory History: Reports: Hx Pneumonia - History of aspiration pneumonia Denies: Other Respiratory Problems/Disorders History: Reports: Hx Benign Prostatic Hyperplasia, Other Problems/ Disorders - prostatitis or enlarged prostate Sensory History: Reports: Hx Cataracts, Hx Contacts or Glasses Denies: Hx Hearing Aid Opthamlomology History: Reports: Hx Cataracts, Hx Contacts or Glasses Neurological History: Reports: Hx Dementia, Hx Seizures Psychiatric History: Denies: Hx Anxiety - Surgical History Hx Anesthesia Reactions: No - Family History Family History: No family history of malignant hyperthermia or anesthesia reaction. - Social History Alcohol Use: None Hx Substance Use: No Substance Use Type: Reports: None Hx Tobacco Use: No Smoking Status (MU): Never Smoked Tobacco Review of Systems - ROS Summary Review of Systems Summary: A complete ROS is unable to be obtained because the patient is unresponsive. All Other Systems Reviewed And Are Negative: No Physical Exam - Summary Physical Exam Summary: VITAL SIGNS: Reviewed. GENERAL: Patient is a well developed and nourished elderly male who presents to the ED via ambulance. Patient is obtunded but responds verbal stimulation. HEAD AND FACE: No signs of trauma. No ecchymosis, hematomas or skull depressions. No sinus tenderness. EYES: PERRLA EARS: Hearing grossly intact. MOUTH: Dry oral mucosa NECK: Supple, trachea is midline, no adenopathy, no JVD CHEST: Symmetric, no tenderness at palpation LUNGS: Coarse breath sounds bilateral CVS: Regular rate and rhythm, S1 and S2 present, no murmurs or gallops appreciated. ABDOMEN: Soft, non-tender. No signs of distention. Bowel sounds are normal. EXTREMITIES: no edema, no cyanosis or clubbing. NEURO: Lethargic obtunded SKIN: Dry and warm Triage Information Reviewed: Yes Vital Signs On Initial Exam: Initial Vitals Temp Pulse Resp BP Pulse Ox 98.2 F 81 12 128/71 95 09/07/16 08:38 09/07/16 08:38 09/07/16 08:38 09/07/16 08:38 09/07/16 08:38 Vital Signs Reviewed: Yes Diagnostics - Vital Signs Vital Signs Temp Pulse Resp BP Pulse Ox 09/07/16 09:00 77 14 97 09/07/16 08:53 81 14 139/60 96 09/07/16 08:50 82 16 97 09/07/16 08:44 98.2 F 78 12 139/60 97 09/07/16 08:38 98.2 F 81 12 128/71 95 - Laboratory Result Diagrams: 09/07/16 09:15 09/07/16 09:15 Lab Statement: Any lab studies that have been ordered have been reviewed, and results considered in the medical decision making process. - Radiology CXR Xray Interpretation: No Acute Changes - IMPRESSION: NO ACTIVE DISEASE. Radiology Interpretation Completed By: Radiologist - CT Brain CT CT Interpretation: No Acute Changes - IMPRESSION: NO ACUTE INTRACRANIAL PATHOLOGY. DIFFUSE INVOLUTIONAL CHANGE WITH CHRONIC SMALL VESSEL ISCHEMIC CHANGES. CT Interpretation Completed By: Radiologist - EKG 08:49 Cardiac Rate: NL - 75 bpm EKG Rhythm: Sinus Rhythm EKG Interpretation: Q waves in II,III, and AvF; Low Voltage EKG; No ST elevation Altered Mental Statu Course/Dx - Course Assessment/Plan: A 75 y/o male presents to the ED with altered mental status. The patient is lethargic and unresponsive to questioning. He is a LEVEL 5 CAVEAT. The is present with the patient; however, she does not speak Bulgarian. Per EMS, she used a bulk intake worker mago on her phone and stated that he has not been eating or drinking since returning home from the hospital. He was recently seen at [facility] and Dx with pneumonia at that time. The following history was obtained through an interpreter and translator. Per the , the patient was seen on August 25 because he was having a fever of 102F. He was then seen on August 29 and admitted to [facility] for two and half days for a pneumonia. On September 01, he was sent home and continued to have a fever and doesn't want to drink any liquids. For the last few days, the patients temperature has been 99.2 in the morning and in the afternoon the temperature will go over a 100 degrees. Blood work shows mild anemia similar to previous on 08/31/16 there is no bands. Glucose of 115. CXR shows no acute pathology. Head CT shows no acute intracranial pathology. In the ED course, the patient was given IV fluids for dehydration. On re-examination, the patient continues to be obtunded and afebrile. Blood test does not show any significant abnormalities, however the patient continues to obtunded. So, I discussed my physical exam findings with Dr. Martinez who accepted the patient for admission. I dont believe that patient had stroke since his CT is negative. CXR shows no pneumonia. At this point, we are still for urine. The patient was placed in a [place] catheter as requested by the . The declined catheter urine. Therefore at this time, I am unable to r/o a UTI. Dr. Martinez will follow-up with the urine to r/o UTI. - Diagnoses Differential Diagnosis/HQI/PQRI: CVA, Hypoglycemia, Intracranial Bleed, Medication Reaction, Metabolic Disorder, Seizure, TIA Discharge Diagnoses: ALTERED MENTAL STATUS - Provider Notifications Discussed Care Of Patient With: Dr. Martinez (Hospitalist) at 10:25 -- Notified of hugonet's history and will admit the patient. Discharge - Discharge Plan Condition: Stable Disposition: ADMITTED TO [facility] Referrals: Angelica Barr MD [Primary Care Provider] - The documentation as recorded by the Dmitriy dubose Matthew accurately reflects the service I personally performed and the decisions made by , Kai Deleon MD.
--- NOTE | 2016-09-07 21:33 | HP ---
ADMISSION HISTORY AND PHYSICAL: DATE OF ADMISSION: 09/07/16 TIME OF MY EVALUATION: 11 a.m. PRIMARY CARE PROVIDER: Angelica Barr MD, [facility]. CHIEF COMPLAINT: Fever/unresponsiveness as per family. HISTORY OF PRESENT ILLNESS: Mr. Aparicio is a 75-year-old man who comes to the emergency room with an altered mental status. The patient is lethargic and unresponsive to questioning. The is present with the patient and neither the patient nor his speak Polish and they are using an iPhone salesperson wigs. I got much of the history through an EMT student rotating in the emergency room, who speaks Mandarin. The patient did not participate in the exam. He was sleeping comfortably. He had a normal respiratory rate as I discussed the case with the patient's at the bedside. Apparently, he has been having ongoing fevers at home. He has diminished responsiveness. He was recently discharged from the hospital on 09/01/16; at that time, the discharge diagnosis was aspiration pneumonia, dehydration, mild lactic acidosis, and subclinical hypothyroidism. Please see that discharge summary as it goes through careful consideration of this patient, who was having a steady decline in the outpatient setting and was actually noted to be interested in hospice. The patient was seen by Speech Pathology, who recommended a pureed diet with nectar thin liquids. The patient did have good intake with his family, but not with hospital aides and he was transitioned to oral medications in the hospital. The patient was noted to be at high risk for re- admission relating to likely future episodes of aspiration pneumonia. This was clearly noted by Dr. Pascal. With that, the patient's does not know of any outright aspiration episodes that have caused his coming to the hospital. It seems that the patient was having a fever at home, although was not measured. The patient has been refusing any liquids. He has been having daily fevers of greater than 100 degrees Fahrenheit. PAST MEDICAL HISTORY: 1. Advanced Alzheimer's dementia. 2. Seizure disorder. 3. Benign prostatic hypertrophy. 4. History of GI bleeding. 5. History of cholelithiasis. 6. Dysphagia/aspiration pneumonia. 7. Dehydration/mild lactic acidosis. 8. Subclinical hypothyroidism. MEDICATIONS: 1. DuoDERM dressings daily. 2. Depakote Sprinkles 500 mg by mouth twice daily. 3. Doxazosin 2 mg by mouth at bedtime. 4. Milk of magnesia 30 mL by mouth daily as needed for constipation. 5. Omeprazole 20 mg by mouth daily. 6. Clindamycin 300 mg by mouth every 6 hours for 7 more days, to end 09/08/16. ALLERGIES: No known drug allergies. SOCIAL HISTORY: The patient is not drinking alcohol, smoking tobacco or using drugs. He lives with his and daughter who provide the majority of his care. His surrogate decision maker is his son, Yi Aparicio, phone number is [phone]. REVIEW OF SYSTEMS: Unable to obtain. PHYSICAL EXAMINATION On admission: GENERAL APPEARANCE: Elderly gentleman in the ER, on a stretcher, in no distress. In general, the patient is an elderly man, in no apparent distress. He is sleeping comfortably. VITAL SIGNS: Temperature 98.2, pulse 81, respirations 12, blood pressure 128/71 , pulse ox 95% on room air. HEENT: Oropharynx is clear. Mucous membranes are moist. No posterior pharyngeal erythema or exudate. CHEST: Breath sounds present bilaterally. No focal rales, rhonchi, wheezing. HEART: Normal S1, normal S2. Regular rate and rhythm. ABDOMEN: Soft, nontender, nondistended. SKIN: Dry and intact. No rashes, lesions, breakdown. EXTREMITIES: Without clubbing, cyanosis, edema. NEUROLOGIC: He did not cooperate with the neuro exam. PSYCH: I could not assess his psychiatric state. LYMPH: No adenopathy appreciated. ADMISSION DATA: White blood cell count 9.9, hemoglobin 12.7, platelets 204; this is similar to his baseline during the recent hospitalization. Blood chemistries are unremarkable. His calcium is borderline low at 8.3, but his albumin is 2.60 on a corrected basis, it is normal. TSH is elevated at 10.73, but his free T3 and free T4 were normal during the last admission, consistent with subclinical hypothyroidism. His toxicology screen was negative. He had a chest x-ray that showed no acute pulmonary parenchymal disease. His brain CT was normal. IMPRESSION: Mr. Aparicio is a 75-year-old gentleman who is undergoing a steady outpatient decline. He is suffering from chronic and intermittent aspiration and suffered an aspiration pneumonia during the last hospitalization and was discharged on oral antibiotics with recommendation for pureed thickened liquids and mechanical soft food. The patient may have violated that instruction. I cannot tell in speaking with the family because of the language barrier. He does not have an outright infiltrate on chest x-ray. There is no evidence of another focal infection at this point. I am going to request an EEG and add on a Depakote level to ensure there is not a neurologic explanation to his lethargy. I am going to hydrate him with 1 to 2 L of normal saline and empirically treat him with ceftriaxone and azithromycin and we will keep him on observation status for now. I am going to re-engage Palliative Care, who saw the patient during the last admission and see how far they have gotten with their hospice enrollment in the outpatient setting and what aggressiveness of care is desired. The patient is DNR at this point. I have updated his MOLST. TIME SPENT: Total time taken to admit Mr. Aparicio was 75 minutes and greater than half the time was spent at the bedside going over the admission history and physical. CC: Angelica Barr MD* [id number]/[facility] #: [id number] NICK
[2016-09-08] MEDS: Divalproex Sprinkle CAP* 125 MG PO SCH ×3 (00:57→21:00)
[2016-09-08] MEDS: Senna TAB PO SCH ×4 (00:57→21:01)
[2016-09-08] MEDS: Doxazosin TAB* 2 MG PO SCH ×2 (00:57→21:01)
[2016-09-08] MEDS: Heparin VIAL(*) 5000 UNITS/ML VIAL (FIVE THOUSAND) SUBCUT SCH ×4 (00:58→20:53)
[2016-09-08] MEDS: cefTRIAXone VIAL(*) 1,000 MG in NS 0.9% 50 ML* 50 ML IVPB SCH ×2 (05:38→16:38)
[2016-09-08 06:29] LABS: Hematocrit 39 % (42-52); Hemoglobin 13.4 g/dl (14.0-18.0); Mean Corpuscular HGB Conc 34 g/dl (31-36); Mean Corpuscular Hemoglobin 33 pg (27-31); Mean Corpuscular Volume 97 fL (80-94); Mean Platelet Volume 8 um3 (7.4-10.4); Red Blood Count 4.08 10^6/ul (4.0-5.4); Red Cell Distribution Width 13 % (10.5-15); White Blood Count 8.1 10^3/ul (3.5-10.8)
[2016-09-08 06:45] LABS: BUN/Creatinine Ratio 13.6 (8-20); Calcium 8.5 mg/dL (8.6-10.3); EGFR African American 171.8 (>60); EGFR Non-African American 133.6 (>60)
[2016-09-08] MEDS: NS 0.9% 1000 ML* 1,000 ML IV SCH ×2 (08:00→21:09)
[2016-09-08 08:19] LABS: Potassium 4.2 mmol/L (3.5-5.0)
[2016-09-08] MEDS ORDERED: [UNRECOGNIZED DRUG - OTHER] TOPICAL SCH (09:00)
[2016-09-08] MEDS: Omeprazole CAP* 20 MG PO SCH (10:38)
[2016-09-08] MEDS: Ferrous Sulfate TAB* 325 MG PO SCH ×2 (10:56→13:03)
--- NOTE | 2016-09-08 17:06 | PN ---
Subjective Date of Service: 09/08/16 Interval History: . limited interview / language; most of interaction with palliative care and hospice teams; patient is scheduled to be admitted to Hospice residence on Sunday. IVF and antibiotics are desired until then family assembling, including brother from [place]. Family History: Unchanged from Admission Social History: Unchanged from Admission Past Medical History: Unchanged from Admission Objective Active Medications: . Acetaminophen (Tylenol Tab*) 650 mg PO Q4H PRN PRN Reason: FEVER/PAIN Divalproex Sodium (Depakote Sprinkle Cap*) 500 mg PO BID [facility] Last Admin: 09/08/16 13:00 Dose: 500 mg Doxazosin Mesylate (Cardura Tab*) 2 mg PO BEDTIME [facility] Last Admin: 09/08/16 00:57 Dose: Not Given Ferrous Sulfate (Ferrous Sulfate Tab*) 325 mg PO DAILY [facility] Last Admin: 09/08/16 13:03 Dose: 325 mg Heparin Sodium (Porcine) (Heparin Vial(*)) 5,000 units SUBCUT Q8HR [facility] Last Admin: 09/08/16 16:34 Dose: Not Given Sodium Chloride (Ns 0.9% 1000 Ml*) 1,000 mls @ 75 mls/hr IV PER RATE [facility] Last Admin: 09/08/16 08:00 Dose: 75 mls/hr Ceftriaxone Sodium 1,000 mg/ (Sodium Chloride) 50 mls @ 200 mls/hr IVPB Q12H [facility] Last Admin: 09/08/16 16:38 Dose: 200 mls/hr Azithromycin 500 mg/ Sodium (Chloride) 250 mls @ 250 mls/hr IVPB Q24H [facility] Last Admin: 09/07/16 17:13 Dose: 250 mls/hr Magnesium Hydroxide (Milk Of Magnesia Liq*) 30 ml PO DAILY PRN PRN Reason: CONSTIPATION Omeprazole (Prilosec Cap*) 20 mg PO DAILY@0730 [facility] Last Admin: 09/08/16 10:38 Dose: Not Given Ondansetron HCl (Zofran Inj*) 4 mg IV Q4H PRN PRN Reason: NAUSEA/VOMITING Senna (Senokot Tab*) 1 tab PO BID [facility] Last Admin: 09/08/16 13:03 Dose: 1 tab . Appearance: elderly and frail;. sleeping peacefully Eyes: No Scleral Icterus Ears/Nose/Mouth/Throat: Clear Oropharnyx Neck: NL Appearance and Movements; NL JVP Respiratory: Symmetrical Chest Expansion and Respiratory Effort Cardiovascular: NL Sounds; No Murmurs; No JVD Abdominal: NL Sounds; No Tenderness; No Distention Lymphatic: No Cervical Adenopathy Extremities: No Edema Skin: No Rash or Ulcers Neurological: - - sleeping Lines/Tubes/Other Access: Clean, Dry and Intact Peripheral IV Nutrition: Taking PO's Result Diagrams: 09/08/16 05:46 09/08/16 05:46 Assess/Plan/Problems-Billing . Assessment: 75 y.o. man with recurrent aspirations and failure to thrive with option for hospice residence on Sunday. . - Patient Problems (1) Altered mental status Current Visit: No Status: Acute Code(s): R41.82 - ALTERED MENTAL STATUS, UNSPECIFIED Comment: - no clear etiology (2) Anemia Current Visit: No Status: Acute Priority: High Code(s): D64.9 - ANEMIA, UNSPECIFIED Comment: hgb stable PO PPI (3) Aspiration pneumonia Current Visit: No Status: Acute Code(s): J69.0 - PNEUMONITIS DUE TO INHALATION OF FOOD AND VOMIT SNOMED Code(s): 827565060 Comment: thickened liquid and poureed texture (4) DNR (do not resuscitate) Current Visit: No Status: Acute Priority: High
[2016-09-08] MEDS: Azithromycin IV(*) 500 MG in NS 0.9% 250 ML* 250 ML IVPB SCH (17:27)
--- NOTE | 2016-09-08 17:39 | CONS ---
PALLIATIVE CARE CONSULTATION: DATE OF CONSULT: 09/08/16 PRIMARY CARE PHYSICIAN: Angelica Barr MD REQUESTING PHYSICIAN FOR CONSULT: Suleiman Martinez MD HOSPITAL COURSE: This is a 75-year-old male with a past medical history of advanced Alzheimer's dementia and seizure disorder, who presented to the emergency room on the with fever and decrease in mental status. The patient was recently admitted to the hospital from August 29 to September 01 with what was presumed aspiration pneumonia. At that time, I was consulted as well for palliative care and at that time, the family agreed to the patient going home with hospice. There was some concern about the level of care and the increase in needs over the past few weeks because of his deterioration. They thought that maybe now that he had been treated for his pneumonia that he would be okay and he would do better. At this time, the patient was admitted for again presumed pneumonia. The temperature at home, the states, has been around 99 to 100 and it seems to be cyclic every evening. There is no fever in the morning. It is not entirely clear how the temperature is being taken and the is taking it and states this is completely accurate. I spoke about my doubt in this being a true cause for an infectious etiology and that this may be due to his inability to regulate his own temperature from his advanced dementia or user error and maybe the thermometer is not working correctly. Regardless, the patient was admitted and it felt again was from aspiration pneumonia, but there was no clear infiltrate on the film. The hospitalist started him on IV fluids and empiric antibiotics and clarke culture. I asked the family, as I met with the son, Yi, his mother, who do not speak Polish and on the speaker phone was the other brother from [place]. We spoke at length regarding disposition planning and they agreed that he has continued to be deconditioned and weak and now he does not get out of bed and has not been in his wheelchair and between three of them, the son, the and an aunt having caring for him 24x7, it is becoming very taxing on them. The concern is that at night, it is the who is there with him alone and he has had instances where he has had a bowel movement during the night that she has had to change him and the size difference is quite dramatic and has been a challenge for her to do this. We talked about options of home with hospice, the residence, and the group home, and they are very interested in the residence and I think this is the right decision for them and the family. Today, we talked at length about the different options and the different pros and cons to each and the was not really involved in the conversation but they are going to talk with her and again with each other to come up with a decision of home with hospice versus a residence. They do agree that they do not want to bring him back and forth to the hospital, although this is counterproductive and they do not think it is good for him, although they do feel that IV fluids and IV antibiotics perks him up and makes him wake up. On my encounter with the patient, his eyes are open. He is able to make eye contact with me. He is not tracking and then he focuses on something else rather quickly. He is nonverbal and unable to follow any commands and unable to obtain any review of systems. PAST MEDICAL HISTORY: 1. Advanced Alzheimer's dementia. 2. Seizure disorder. 3. BPH. 4. History of GI bleeding. 5. History of cholelithiasis. 6. History of dysphagia/aspiration pneumonia. 7. History of dehydration/mild lactic acidosis. 8. Subclinical hypothyroidism. 9. Recent admission from August 29 to September 01 for aspiration pneumonia. MEDICATIONS: Inpatient medications are: 1. Tylenol 650 mg every 4 hours as needed. 2. Depakote 500 mg p.o. b.i.d. 3. Doxazosin 2 mg at bedtime. 4. Ferrous sulfate daily. 5. Heparin subcu t.i.d. 6. Magnesium hydroxide 30 mL as needed. 7. IV normal saline at 75 cc an hour. 8. Omeprazole 20 mg daily. 9. Zofran 4 mg every 4 hours as needed. 10. Ceftriaxone 1 g q.12 hours. 11. Senna 1 tab p.o. b.i.d. 12. Azithromycin 500 mg q.24. ALLERGIES: No known drug allergies. FAMILY HISTORY: Unable to obtain. SOCIAL HISTORY: As mentioned, the patient lives at home with his and his son, Yi, and aunt also come and help take care of him. Nonverbal, nonambulatory, completely dependent on his ADLs. The son, Yi, is the healthcare proxy, his phone number is [phone]. The MOLST form is DNR/DNI, no feeding tube, determine antibiotics, and send to the hospital. REVIEW OF SYSTEMS: Unable to obtain. PHYSICAL EXAM: Vitals: Temp 97.9, pulse rate 65, respiratory rate 18, oxygen saturation 100% on room air, blood pressure 145/64. General: The patient's eyes are open, he does make eye contact with me, no tracking. HEENT: Neck supple. No lymphadenopathy. Pupils are equal and reactive, anicteric. Head: Normocephalic. Oropharynx: Mucous membranes moist. Cardiac: Regular rate and rhythm. No murmurs, rubs, or gallops. Respiratory: Diminished breath sounds. No wheezing, rhonchi, or rales. Abdomen: Soft, nontender, nondistended. Extremities: No clubbing, cyanosis, or edema. Neurologic: Nonverbal, unable to follow commands. Did not appreciate any spontaneous movement. DIAGNOSTIC STUDIES/LAB DATA: White count 8.1, hemoglobin 13.4, hematocrit 39, platelets 193. Sodium 135, potassium 4.2, chloride 105, bicarb 23, BUN 8, creatinine 0.59. Radiographic data: Chest x-ray: No active disease. ASSESSMENT AND PLAN: This is a 75-year-old male with a past medical history of advanced dementia and seizure disorder, who presents to the hospital for second time in the past month for low-grade temperature. There are no focal infectious findings on his exam or his imaging and I question this fever being an infectious cause as it seems to be cyclic with every evening. We discussed his continued deterioration and weakness and that his needs are going to be increased if he is at home and there is concern amongst the son that they will not be able to provide the care that he needs as they seemed to be already overextended. We talked at length about the hospice, the residence, and how this could be a potentially good option for them and they are very interested in this and need to wait 72 hours for the Medicaid approval before they can be accepted because it is the Sunday, they are going to decide and talk about this more at length over the weekend and rather than taking him home with hospice for 2 days and then moving him again to the residence, it is in the patient's best interest to stay in one place until a final decision and the insurance has approved for him to stay at the residence rather than transporting him multiple places in a short period of time for somebody who is at the end of the life. I will discuss with Dr. Martinez my recommendations and how I would recommend holding his fluids and his antibiotics and seeing how he does with his home regimen, as I do not think it will improve his quality of life or reverse his neurologic devastation. I also talked with the son again about modifying his MOLST putting do not send to the hospital and trial IV fluids and determine antibiotics as necessary, and he is agreeable to this. PATIENT SPENT: More than 90 minutes was spent during this consultation, more than half the time was spent in direct patient contact. CC: Angelica Barr MD* [id number]/[facility] #: [id number] NICK
--- NOTE | 2016-09-09 01:03 | EEG ---
ELECTROENCEPHALOGRAPHY: DATE OF STUDY: 09/07/16 - inpatient, room #[facility] PATIENT OF: Dr. Martinez. HISTORY: This is a 75-year-old man who is significantly obtunded with a history of fever and decreased or absent p.o. intake over the past 3 days' time. He was recently hospitalized for pneumonia. He has a past history of dementia and epilepsy. MEDICATIONS: None currently as per chart. INTERPRETATION: With the patient awake, background cerebral activity consists of moderate amplitude diffuse theta activity that reaches 7 Hz in frequency and occasionally there is admixed delta activity as well. Frequent left central and left occipital sharp waves are noted. There is occasional right parietal sharp waves present. No subclinical seizures are noted. IMPRESSION: This EEG is abnormal because of diffuse slowing of background consistent with a generalized encephalopathy as well as multifocal sharp waves suggesting of predisposition to seizures. Of note, these findings are similar to prior EEGs on 04/26/16 and 02/24/16. [id number]/[facility] #: [id number] [facility]OSPITALStuart
[2016-09-09] MEDS: cefTRIAXone VIAL(*) 1,000 MG in NS 0.9% 50 ML* 50 ML IVPB SCH ×2 (04:37→18:02)
[2016-09-09] MEDS: Heparin VIAL(*) 5000 UNITS/ML VIAL (FIVE THOUSAND) SUBCUT SCH ×3 (04:40→21:22)
[2016-09-09] MEDS: Omeprazole CAP* 20 MG PO SCH (10:15)
[2016-09-09] MEDS: Divalproex Sprinkle CAP* 125 MG PO SCH ×2 (10:16→21:21)
[2016-09-09] MEDS: Ferrous Sulfate TAB* 325 MG PO SCH (10:16)
[2016-09-09] MEDS: Senna TAB PO SCH ×2 (10:16→21:21)
[2016-09-09] MEDS: NS 0.9% 1000 ML* 1,000 ML IV SCH (10:34)
[2016-09-09] MEDS: Azithromycin IV(*) 500 MG in NS 0.9% 250 ML* 250 ML IVPB SCH (16:31)
--- NOTE | 2016-09-09 17:49 | PN ---
Subjective Date of Service: 09/09/16 Interval History: Patient not responsive. in room. We conversed through iphone director strategic planning. Son arrived later, discussed situation. There are no perceived complaints from patient. He took applesauce with depakote this AM. Family History: Unchanged from Admission Social History: Unchanged from Admission Past Medical History: Unchanged from Admission Objective Active Medications: Acetaminophen (Tylenol Tab*) 650 mg PO Q4H PRN PRN Reason: FEVER/PAIN Divalproex Sodium (Depakote Sprinkle Cap*) 500 mg PO BID [facility] Last Admin: 09/09/16 10:16 Dose: 500 mg Doxazosin Mesylate (Cardura Tab*) 2 mg PO BEDTIME [facility] Last Admin: 09/08/16 21:01 Dose: 2 mg Ferrous Sulfate (Ferrous Sulfate Tab*) 325 mg PO DAILY [facility] Last Admin: 09/09/16 10:16 Dose: 325 mg Heparin Sodium (Porcine) (Heparin Vial(*)) 5,000 units SUBCUT Q8HR [facility] Last Admin: 09/09/16 12:54 Dose: Not Given Sodium Chloride (Ns 0.9% 1000 Ml*) 1,000 mls @ 75 mls/hr IV PER RATE [facility] Last Admin: 09/09/16 10:34 Dose: 75 mls/hr Ceftriaxone Sodium 1,000 mg/ (Sodium Chloride) 50 mls @ 200 mls/hr IVPB Q12H [facility] Last Admin: 09/09/16 04:37 Dose: 200 mls/hr Azithromycin 500 mg/ Sodium (Chloride) 250 mls @ 250 mls/hr IVPB Q24H [facility] Last Admin: 09/09/16 16:31 Dose: 250 mls/hr Magnesium Hydroxide (Milk Of Magnesia Liq*) 30 ml PO DAILY PRN PRN Reason: CONSTIPATION Omeprazole (Prilosec Cap*) 20 mg PO DAILY@0730 [facility] Last Admin: 09/09/16 10:15 Dose: 20 mg Ondansetron HCl (Zofran Inj*) 4 mg IV Q4H PRN PRN Reason: NAUSEA/VOMITING Senna (Senokot Tab*) 1 tab PO BID [facility] Last Admin: 09/09/16 10:16 Dose: 1 tab Vital Signs 09/08/16 09/09/16 09/09/16 23:27 03:59 07:43 Temperature 36.8 C 36.9 C Pulse Rate 86 97 Respiratory 16 16 12 Rate Blood Pressure 112/71 130/62 (mmHg) O2 Sat by Pulse 97 96 Oximetry Oxygen Devices in Use Now: Nasal Cannula Eyes: No Scleral Icterus Respiratory: Clear to Auscultation Cardiovascular: NL Sounds; No Murmurs; No JVD Abdominal: NL Sounds; No Tenderness; No Distention Neurological: - - unresponsive to voice, light touch, abdominal pressure Lines/Tubes/Other Access: Clean, Dry and Intact Peripheral IV Result Diagrams: 09/08/16 05:46 09/08/16 05:46 Assess/Plan/Problems-Billing . Assessment: 75 y.o. man with recurrent aspirations and failure to thrive with option for hospice residence on Sunday. - Patient Problems (1) Dementia Current Visit: No Status: Chronic Code(s): F03.90 - UNSPECIFIED DEMENTIA WITHOUT BEHAVIORAL DISTURBANCE SNOMED Code(s): 55269918 Comment: - Patient at end stage of alzheimers, not eating/drinking - Continue supportive care. - Palliative care consult appreciated. - 20 minutes spent with son and spouse, discussed comfort, natural course of dementia, and plan for hospice Status and Disposition: To hospicare residence on Sunday, or home hospice
[2016-09-09] MEDS: Doxazosin TAB* 2 MG PO SCH (21:21)
[2016-09-10] MEDS: NS 0.9% 1000 ML* 1,000 ML IV SCH ×2 (00:59→16:34)
[2016-09-10] MEDS: cefTRIAXone VIAL(*) 1,000 MG in NS 0.9% 50 ML* 50 ML IVPB SCH ×2 (04:47→16:34)
[2016-09-10] MEDS: Heparin VIAL(*) 5000 UNITS/ML VIAL (FIVE THOUSAND) SUBCUT SCH ×3 (05:30→21:05)
[2016-09-10] MEDS: Divalproex Sprinkle CAP* 125 MG PO SCH ×2 (08:35→20:42)
[2016-09-10] MEDS: Omeprazole CAP* 20 MG PO SCH (08:35)
[2016-09-10] MEDS: Senna TAB PO SCH ×2 (08:35→20:43)
[2016-09-10] MEDS: Ferrous Sulfate TAB* 325 MG PO SCH (08:35)
--- NOTE | 2016-09-10 15:06 | PN ---
Subjective Date of Service: 09/10/16 Interval History: Patient asleep, not aroused Spoke with son, patient took some soft food, and thickened liquids PO this AM. Family History: Unchanged from Admission Social History: Unchanged from Admission Past Medical History: Unchanged from Admission Objective Active Medications: Acetaminophen (Tylenol Tab*) 650 mg PO Q4H PRN PRN Reason: FEVER/PAIN Divalproex Sodium (Depakote Sprinkle Cap*) 500 mg PO BID [facility] Last Admin: 09/10/16 08:35 Dose: 500 mg Doxazosin Mesylate (Cardura Tab*) 2 mg PO BEDTIME [facility] Last Admin: 09/09/16 21:21 Dose: 2 mg Ferrous Sulfate (Ferrous Sulfate Tab*) 325 mg PO DAILY [facility] Last Admin: 09/10/16 08:35 Dose: 325 mg Heparin Sodium (Porcine) (Heparin Vial(*)) 5,000 units SUBCUT Q8HR [facility] Last Admin: 09/10/16 13:26 Dose: Not Given Sodium Chloride (Ns 0.9% 1000 Ml*) 1,000 mls @ 75 mls/hr IV PER RATE [facility] Last Admin: 09/10/16 00:59 Dose: 75 mls/hr Ceftriaxone Sodium 1,000 mg/ (Sodium Chloride) 50 mls @ 200 mls/hr IVPB Q12H [facility] Last Admin: 09/10/16 04:47 Dose: 200 mls/hr Azithromycin 500 mg/ Sodium (Chloride) 250 mls @ 250 mls/hr IVPB Q24H [facility] Last Admin: 09/09/16 16:31 Dose: 250 mls/hr Magnesium Hydroxide (Milk Of Magnesia Liq*) 30 ml PO DAILY PRN PRN Reason: CONSTIPATION Omeprazole (Prilosec Cap*) 20 mg PO DAILY@0730 [facility] Last Admin: 09/10/16 08:35 Dose: 20 mg Ondansetron HCl (Zofran Inj*) 4 mg IV Q4H PRN PRN Reason: NAUSEA/VOMITING Senna (Senokot Tab*) 1 tab PO BID [facility] Last Admin: 09/10/16 08:35 Dose: 1 tab Vital Signs 09/09/16 09/10/16 09/10/16 20:00 07:24 07:37 Temperature 36.8 C Pulse Rate 88 Respiratory 18 14 16 Rate Blood Pressure 150/82 (mmHg) O2 Sat by Pulse 97 Oximetry Oxygen Devices in Use Now: Nasal Cannula Appearance: elderly, lying in bed, comfortable, eyes closed Lines/Tubes/Other Access: Clean, Dry and Intact Peripheral IV Result Diagrams: 09/08/16 05:46 09/08/16 05:46 Assess/Plan/Problems-Billing . Assessment: 75 y.o. man with recurrent aspirations and failure to thrive with option for hospice residence on Sunday. - Patient Problems (1) Dementia Current Visit: No Status: Chronic Code(s): F03.90 - UNSPECIFIED DEMENTIA WITHOUT BEHAVIORAL DISTURBANCE SNOMED Code(s): 34233715 Comment: - Patient at end stage of alzheimers, not eating/drinking enough to sustain life - Continue supportive care. - 10 minutes spent with son and spouse, discussed comfort, natural course of dementia, and plan for hospice Status and Disposition: To hospicare residence on Sunday, or home hospice
[2016-09-10] MEDS: Azithromycin IV(*) 500 MG in NS 0.9% 250 ML* 250 ML IVPB SCH (15:20)
[2016-09-10] MEDS: Doxazosin TAB* 2 MG PO SCH (20:43)
[2016-09-11] MEDS: cefTRIAXone VIAL(*) 1,000 MG in NS 0.9% 50 ML* 50 ML IVPB SCH ×2 (04:23→16:51)
[2016-09-11] MEDS: Heparin VIAL(*) 5000 UNITS/ML VIAL (FIVE THOUSAND) SUBCUT SCH ×3 (05:09→22:22)
[2016-09-11] MEDS: NS 0.9% 1000 ML* 1,000 ML IV SCH ×2 (05:55→22:22)
[2016-09-11] MEDS: Senna TAB PO SCH ×2 (08:19→22:26)
[2016-09-11] MEDS: Ferrous Sulfate TAB* 325 MG PO SCH (08:19)
[2016-09-11] MEDS: Omeprazole CAP* 20 MG PO SCH (08:20)
[2016-09-11] MEDS: Divalproex Sprinkle CAP* 125 MG PO SCH ×2 (08:20→22:26)
--- NOTE | 2016-09-11 15:17 | PN ---
Subjective Date of Service: 09/11/16 Interval History: HOSPITALIST PROGRESS NOTE Patient seen and examined at bedside. He was being cleaned up by aides when I came in, eyes were open, but not interacting. As per son, he ate breakfast well. Family History: Unchanged from Admission Social History: Unchanged from Admission Past Medical History: Unchanged from Admission Objective Active Medications: Acetaminophen (Tylenol Tab*) 650 mg PO Q4H PRN PRN Reason: FEVER/PAIN Divalproex Sodium (Depakote Sprinkle Cap*) 500 mg PO BID [facility] Last Admin: 09/11/16 08:20 Dose: 500 mg Doxazosin Mesylate (Cardura Tab*) 2 mg PO BEDTIME [facility] Last Admin: 09/10/16 20:43 Dose: 2 mg Ferrous Sulfate (Ferrous Sulfate Tab*) 325 mg PO DAILY [facility] Last Admin: 09/11/16 08:19 Dose: 325 mg Heparin Sodium (Porcine) (Heparin Vial(*)) 5,000 units SUBCUT Q8HR [facility] Last Admin: 09/11/16 13:11 Dose: Not Given Sodium Chloride (Ns 0.9% 1000 Ml*) 1,000 mls @ 75 mls/hr IV PER RATE [facility] Last Admin: 09/11/16 05:55 Dose: 75 mls/hr Ceftriaxone Sodium 1,000 mg/ (Sodium Chloride) 50 mls @ 200 mls/hr IVPB Q12H [facility] Last Admin: 09/11/16 04:23 Dose: 200 mls/hr Azithromycin 500 mg/ Sodium (Chloride) 250 mls @ 250 mls/hr IVPB Q24H [facility] Last Admin: 09/10/16 15:20 Dose: 250 mls/hr Magnesium Hydroxide (Milk Of Magnesia Liq*) 30 ml PO DAILY PRN PRN Reason: CONSTIPATION Omeprazole (Prilosec Cap*) 20 mg PO DAILY@0730 [facility] Last Admin: 09/11/16 08:20 Dose: 20 mg Ondansetron HCl (Zofran Inj*) 4 mg IV Q4H PRN PRN Reason: NAUSEA/VOMITING Senna (Senokot Tab*) 1 tab PO BID [facility] Last Admin: 09/11/16 08:19 Dose: 1 tab Vital Signs 09/10/16 09/11/16 09/11/16 20:00 07:19 08:00 Temperature 98.1 F Pulse Rate 75 Respiratory 14 14 16 Rate Blood Pressure 143/71 (mmHg) O2 Sat by Pulse 100 Oximetry Oxygen Devices in Use Now: Nasal Cannula Appearance: Elderly male lying in bed in NAD. Eyes: No Scleral Icterus Ears/Nose/Mouth/Throat: Mucous Membranes Moist Neck: Trachea Midline Respiratory: Symmetrical Chest Expansion and Respiratory Effort, Clear to Auscultation Cardiovascular: RRR - Normal S1 and S2 Neurological: - - Eyes are open, doesn't follow commands. Result Diagrams: 09/08/16 05:46 09/08/16 05:46 Assess/Plan/Problems-Billing Assessment: Mr. Aparicio is a 75yo M with advanced dementia, seizure disorder, BPH, recurrent aspiration pneumonia, who presented to ED with fever and poor oral intake. - Patient Problems (1) Dementia Comment: - Patient at end stage of alzheimers, not eating/drinking enough to sustain life - Continue supportive care. - Plan to discharge to Hospicare residence in AM. (2) DNR (do not resuscitate) Status and Disposition: Inpatient.
[2016-09-11] MEDS: Azithromycin IV(*) 500 MG in NS 0.9% 250 ML* 250 ML IVPB SCH (15:39)
[2016-09-11] MEDS: Doxazosin TAB* 2 MG PO SCH (22:24)
[2016-09-12] MEDS: cefTRIAXone VIAL(*) 1,000 MG in NS 0.9% 50 ML* 50 ML IVPB SCH (04:51)
[2016-09-12] MEDS: Heparin VIAL(*) 5000 UNITS/ML VIAL (FIVE THOUSAND) SUBCUT SCH (04:52)
[2016-09-12] MEDS: Omeprazole CAP* 20 MG PO SCH (07:45)
[2016-09-12] MEDS: Senna TAB PO SCH (07:45)
[2016-09-12] MEDS: Ferrous Sulfate TAB* 325 MG PO SCH (07:45)
[2016-09-12] MEDS: Divalproex Sprinkle CAP* 125 MG PO SCH (07:46)
[2016-09-12 09:12] VITALS: BP 161/113
--- NOTE | 2016-09-12 09:26 | DS ---
DISCHARGE SUMMARY: DATE OF ADMISSION: 09/07/2016 DATE OF DISCHARGE: 09/12/2016 DISCHARGE DIAGNOSES: 1. Advanced dementia. 2. Recent episode of aspiration pneumonia. SECONDARY DIAGNOSES: 1. Seizure disorder. 2. BPH. 3. History of GI bleed. 4. History of cholelithiasis. 5. Dysphagia with prior episodes of aspiration pneumonia. 6. Prior episodes of dehydration. 7. Subclinical hypothyroidism. MEDICATION LIST: 1. Omeprazole 20 mg p.o. daily. 2. Milk of Magnesia 30 mL p.o. daily as needed for constipation. 3. Divalproex sprinkles 500 mg p.o. b.i.d. 4. DuoDerm dressing topical daily. 5. Doxazosin 2 mg p.o. at bedtime. 6. Senna 1000 p.o. b.i.d. hold for loose stool. NEW MEDICATIONS: 1. Morphine oral concentrate 5 mg p.o. every 2 hours p.r.n. pain or tachypneic with respiratory rate greater than 24 MDD 60 mg. 2. Lorazepam 0.5 mg p.o. every 4 hours p.r.n. anxiety or agitation MDD 6 tablets. 3. Atropine 1% oral solution 2 drops sublingual every 2 hours p.r.n. terminal secretions. 4. Acetaminophen 650 mg p.o. every 4 hours p.r.n. pain or fever. HOSPITAL COURSE: Mr. Aparicio is a 75-year-old male,with a past medical history as stated above, that has been recently admitted to [facility] with lethargy secondary to dehydration and possible aspiration pneumonia. He was discharged home with plan for possible hospice admission at home, but he returned to the hospital shortly after discharge with similar complaint of altered mental status and fever at home. Of note is that the patient was afebrile during his prior admission and afebrile during this admission, so infection was not felt to be playing a role at this time. The patient was once again seen by palliative care and the impression is the patient has advanced dementia and would benefit on hospice services. After multiple conversations with the patient's son, decision was made to discharge him to the Hospice Care Residence. The patient is medically stable for discharge at this time. PHYSICAL EXAMINATION: Vital signs: Temperature 98.8. Heart rate 75. Respiratory rate 16. Oxygen saturation 100% on room air. Blood pressure 143/71. General: Patient is an elderly male lying in bed in no acute distress. CVS: Normal S1, S2. Regular rate and rhythm. Chest: Breath sounds bilateral with no added sounds. Abdomen: Soft. Bowel sounds are present. Extremities: No edema. Neuro: Eyes are open, but he does not interact. DIET: Regular diet for comfort with pureed texture and nectar thick liquids. ACTIVITY: As tolerated. DISPOSITION: To home. STATUS WHILE IN THE HOSPITAL: Inpatient. Please keep in mind that this is a summarized version of this patient's hospital stay. If you need more information, please feel free to call me at or please obtain the full medical records. TIME SPENT: Approximately 45 minutes were spent to complete this discharge. CC: Dr. Angelica Barr; Hospice Care Physician Dr. Adri Rossi* [id number]/[facility] #: [id number] MTDD
== END 2016-09-12 10:55 | disposition hospice, inpatient (51) | DRG 42 ==
LOC: ED 08:33 → MED 10:30 → OBSVTOIN 09-08 15:28
PROVIDERS: ADMIT Internal Medicine; ATTEND Internal Medicine
PROC: 4A00X4Z Measurement of Central Nervous Electrical Activity, External Approach (ICD-10-PCS; principal; 2016-09-08)
DX: G30.9 Alzheimer's disease, unspecified (principal); R13.10 Dysphagia, unspecified; D64.9 Anemia, unspecified; F02.80 Dementia in other diseases classified elsewhere, unspecified severity, without behavioral disturbance, psychotic disturbance, mood disturbance, and anxiety; Z87.01 Personal history of pneumonia (recurrent); N40.0 Benign prostatic hyperplasia without lower urinary tract symptoms; G40.909 Epilepsy, unspecified, not intractable, without status epilepticus; E03.8 Other specified hypothyroidism; Z66 Do not resuscitate; R62.7 Adult failure to thrive
CPT/HCPCS: 36415; 70450; 71020; 80048; 80053; 80164; 80320; 80329; 81003; 82140; 82550; 83605; 83735; 84443; 84484; 85025; 87040; 93005; 95816; A9270-GY; G0378; G0480; J0456; J0696; J1644